=== PATIENT | male | born 1975 | race Caucasian/White ===

== ENCOUNTER 2016-11-27 02:50 | Emergency (ER) | payer OTHER ==
[~2016-11-27] VITALS: Ht 167.6 cm; Wt 70.8 kg
[~2016-11-27 02:50] MED LIST: <VITAMIN> A + D1 APP TOP; ALBUTEROL SULFAT3 M1 NEB; ARTIFICIAL TEAR1 OIN OPH; DESITIN MAXIMUM S40% TOP; FUROSEMIDE20 MG PEG; HEPARIN SC; JEVITY 1.2 CAL237 M1; JEVITY 1.2 CAL237 ML G TUBE; K-SOL20 MEQ/15 PEG; MEROPENEM1 G1 IV; MULTI-VIT WITH50 ML G TUBE; MULTI-VIT WITH50 ML PEG; OMEPRAZOLE D/R20 MG; OMEPRAZOLE40 M1; PAXIL10 M1 PEG; PERIDEX 0.12% OR1 ML PO; PHENOBARBI20 MG/5 M1 G TUBE; ROBINUL 1MG TABL1 MG PEG; TRANS SCOPE PAT1 PAT TOP; VANCOMYCIN1 GM/250 M IV; [UNRECOGNIZED DRUG - OTHER] NEB; [UNRECOGNIZED DRUG - OTHER] SC
--- NOTE | 2016-11-27 02:57 | ED GI/GU/ABDOMINAL COMPLAINT ---
See Addendum History of Present Illness General Chief Complaint: General Adult Stated Complaint: TUBE FEEDING REPLACEMENT Source: EMS, W10 Exam Limitations: clinical condition Vital Signs & Intake/Output Vital Signs & Intake/Output Vital Signs Date Time Temp Pulse Resp B/P Pulse O2 O2 Flow FiO2 Ox Delivery Rate 11/27 257 95 Trach Mask 6.0L 11/27 251 96.9 82 20 115/73 96 Trach Mask 6.0L Allergies Coded Allergies: NO KNOWN ALLERGIES (01/05/16) Reconcile Medications Acetylcysteine (Mucosol 20% 4ML) 4 ML ML 2 ML NEB BID WITH ALBUTEROL - RESPIRATORY (Reported) Albuterol Sulfate 3 ML NEB 3 ML NEB BID WITH ACETYLCYSTINE - RESP. 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 course Heparin 5,000 UNIT/ML BANDAR 5,000 UNIT SC Q8H BLOOD THINNER (Reported) Lactose-Reduced Food/Fiber (Jevity 1.2 Demetris Liquid) (Unknown Strength) LIQUID ( Unknown Dose) AD NUTRITIONAL SUPPLEMENT (Reported) Lanolin/Mineral Oil/Petrolat (Artificial Tears) 1 OIN OIN 1 KEISHA OPH 4 TIMES/ DAY BOTH EYES (Reported) Meropenem 1 GM VIAL 1 GM IV IQ8 aspiration pneumonia Omeprazole (Unknown Strength) CAPSULE.DR (Unknown Dose) AD GI (Reported) Paroxetine HCl (Paxil) 10 MG TABLET 1 TAB PEG DAILY MENTAL HEALTH (Reported) Phenobarbital 20 MG/5 ML ELIXIR 15 ML G TUBE BID SEIZURE PROPHYLAXIS ( Reported) Potassium Chloride (K-Beth) 20 MEQ/15 ML LIQUID 7.5 ML PEG DAILY SUPPLEMENT ( Reported) Scopolamine Hydrobromide (Transderm-Scop) 1 PAT PAT 1 PAT TOP Q3D secretions (Reported) apply to the hairless area behind 1 ear at least 4 hours before effect is required; reapply every 3 days as needed Vancomycin/0.9 % Sod Chloride (Vancomycin-0.9% NaCl 1 G/250) 1 GM/250 ML PLAST..BAG 1,000 MG IV Q12 aspiration pneumonia Triage Nurses Notes Reviewed? yes Onset: Abrupt Duration: hour(s): Timing: single episode today Quality/Severity: NO PAIN Location: epigastric Radiation: no radiation Activities at Onset: none Modifying Factors: Worsens With: other (ECF STAFF NOTED DISLODGED GTUB). Associated Symptoms: DISLODGED G-TUBE HPI: 41-year-old gentleman from a group home presents after the staff noted that his G-tube was dislodged. The medics were unclear what may have caused the G- tube to be dislodged. The w 10 noted that there was no trauma, bleeding, or other issues. He is otherwise well. Past History Travel History Traveled to [place] past 21 day No Medical History Any Pertinent Medical History? 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 No Review of Systems Review of Systems Constitutional: Reports: no symptoms. EENTM: Reports: no symptoms. Respiratory: Reports: no symptoms. Cardiovascular: Reports: no symptoms. GI: Reports: no symptoms. Genitourinary: Reports: no symptoms. Musculoskeletal: Reports: no symptoms. Skin: Reports: no symptoms. Neurological/Psychological: Reports: no symptoms. Hematologic/Endocrine: Reports: no symptoms. Immunologic/Allergic: Reports: no symptoms. All Other Systems: Reviewed and Negative Physical Exam Physical Exam General Appearance: well developed/nourished, no apparent distress, alert Head: atraumatic, normal appearance Eyes: Bilateral: normal appearance. Ears, Nose, Throat, Mouth: hearing grossly normal Neck: normal inspection, supple, full range of motion, normal alignment Respiratory: normal breath sounds, chest non-tender, no respiratory distress, quiet respiration, lungs clear Cardiovascular: regular rate/rhythm Gastrointestinal: normal bowel sounds, soft, non-tender Extremities: CONTRACTED Core Measures ACS in differential dx? No Severe Sepsis Present: No Septic Shock Present: No Progress Differential Diagnosis: g-TUBE DISLODGMENT Plan of Care: g tube placed without problem Diagnostic Imaging: Viewed by Me: Radiology Read. Discussed w/RAD: Radiology Read. Radiology Impression: abd xray... gtube in proper position Initial ED EKG: none Comments: PATIENT: LITZY CARVALHO PRESENT AGE: 41 PATIENT ACCOUNT NO: [id number] : 76 LOCATION: [facility] ORDERING PHYSICIAN: CARLOS ANDERS MD SERVICE DATE: 11/27/16 EXAM TYPE: RAD - [id number] VIEW Addendum: Following the original dictation, contrast was administered via the patient's G-tube. The G-tube is positioned within the stomach. Contrast opacifies the stomach which appears decompressed. Addendum Signed by: JOHNNY CARROLL MD 11/27/16546 EXAMINATION: XR ABDOMEN CLINICAL INDICATION: G-tube placement. COMPARISON: Abdominal CT 03/03/2016. FINDINGS: The reported gastrostomy tube is not visualized on this exam. IVC filter with its apex at the L3 level. Large volume stool within the rectum. There is contrast within distal bowel. No bowel obstruction. No acute osseous findings. IMPRESSION: The reported gastrostomy tube is not visualized on this exam. Gastrografin can be administered to confirm placement if indicated. DICTATED BY: JOHNNY CARROLL MD DATE/TIME DICTATED:11/27/16431 ROTARY RIG ENGINE OPERATOR:GEORGE DATE/TIME TRANSCRIBED:11/27/16431 CONFIDENTIAL, DO NOT COPY WITHOUT APPROPRIATE AUTHORIZATION. <Electronically signed in Other Vendor System> SIGNED BY: JOHNNY CARROLL MD 11/27/16440 Departure Departure Disposition: HOME OR SELF CARE Condition: Stable Clinical Impression Primary Impression: Dislodged gastrostomy tube Secondary Impressions: Attention to G-tube Referrals: SERENITY MORE MD (PCP/Family) Departure Forms: Customer Survey General Discharge Information Comments site confirmed via xray... pt safe for discharge.
--- NOTE | 2016-11-27 04:41 | RADIOLOGY REPORT ---
EXAMINATION: XR ABDOMEN CLINICAL INDICATION: G-tube placement. COMPARISON: Abdominal CT 03/03/2016. FINDINGS: The reported gastrostomy tube is not visualized on this exam. IVC filter with its apex at the L3 level. Large volume stool within the rectum. There is contrast within distal bowel. No bowel obstruction. No acute osseous findings. IMPRESSION: The reported gastrostomy tube is not visualized on this exam. Gastrografin can be administered to confirm placement if indicated.
[2016-11-27 07:25] VITALS: BP 122/68
== END 2016-11-27 08:42 ==
LOC: ERH 02:50
DX: K94.29 Other complications of gastrostomy (principal)
CPT/HCPCS: 74000

== ENCOUNTER 2017-05-25 23:29 | Emergency (ER) | payer OTHER ==
[~2017-05-25 23:29] MED LIST changes: +ACETYLCYST200 MG/1 M NEB; -ALBUTEROL SULFAT3 M1 NEB; +ALBUTEROL2.5 MG/3 M INH; -ARTIFICIAL TEAR1 OIN OPH; +ARTIFICIAL TEAR15 M8 OP; +FUROSEMIDE20 M1 PEG; +GABAPENTIN300 M2 PEG; +GLYCOPYRROLATE2 MG PEG; -HEPARIN SC; +HEPARIN SO5000 UNIT3 SC; -K-SOL20 MEQ/15 PEG; -OMEPRAZOLE40 M1; +Omeprazole PEG; +PERIDEX473 ML PO; -PHENOBARBI20 MG/5 M1 G TUBE; +PHENOBARBI20 MG/5 M2 PEG; +POTASSIUM20 MEQ/12 PEG; -[UNRECOGNIZED DRUG - OTHER] NEB; -[UNRECOGNIZED DRUG - OTHER] SC
--- NOTE | 2017-05-25 23:43 | ED GENERAL ADULT ---
History of Present Illness General Chief Complaint: Fever Stated Complaint: FEVER Source: EMS Exam Limitations: clinical condition Vital Signs & Intake/Output Vital Signs & Intake/Output Vital Signs Date Time Temp Pulse Resp B/P B/P Pulse O2 O2 Flow FiO2 Mean Ox Delivery Rate 05/26 0227 98.4 106 20 108/74 94 Trach Mask 6.0L 05/25 2331 98.5 103 24 109/78 94 Trach Mask ED Intake and Output 05/26 0000 05/25 1200 Intake Total Output Total Balance Patient 125 lb Weight Weight Estimated Measurement Method Allergies Coded Allergies: NO KNOWN ALLERGIES (01/05/16) Reconcile Medications Acetylcysteine (Acetylcysteine) 200 MG/ML (20 %) VIAL 2 ML NEB BID SHORTNESS OF BREATH (Reported) Albuterol Sulfate 2.5 MG/3 ML (0.083 %) VIAL.NEB 1 VIAL INH BID BREATHING PROBLEMS (Reported) Chlorhexidine Gluconate (Peridex) 0.12 % MOUTHWASH 5 ML PO TID ORAL HYGINE ( Reported) Furosemide 20 MG TABLET 1 TAB PEG Tuesday WATER RETENTION (Reported ) Gabapentin 300 MG CAPSULE 1 CAP PEG TID UNKNOWN (Reported) Glycopyrrolate 2 MG TABLET 1 TAB PEG TID UNKNOWN (Reported) Heparin Sodium,Porcine (Heparin Sodium) 5,000 UNIT/ML VIAL 1 ML SC Q8 BLOOD THINNER (Reported) Lactose-Reduced Food/Fiber (Jevity 1.2 Demetris Liquid) (Unknown Strength) LIQUID ( Unknown Dose) AD NUTRITIONAL SUPPLEMENT (Reported) [Omeprazole] LIQ 20 ML PEG DAILY GI (Reported) Paroxetine HCl (Paxil) 10 MG TABLET 1 TAB PEG DAILY MENTAL HEALTH (Reported) Phenobarbital 20 MG/5 ML (5 ML) ELIXIR 15 ML PEG BID SEIZURES (Reported) Polyvinyl Alcohol (Artificial Tears) 1.4 % DROPS 1 DROP OP 4 TIMES/DAY DRY EYE (Reported) Potassium Chloride 20 MEQ/15 ML LIQUID 7.5 ML PEG DAILY SUPPLEMENT (Reported) Triage Nurses Notes Reviewed? yes Onset: Gradual Duration: hour(s): Timing: single episode today Injury Environment: home Severity: moderate HPI: 42 yo gentleman w/ anoxic brain injury presents after a fever this pm >102. Labs done earlier today were benign. He is non verbal, does not appear to be uncomfortable, and is otherwise well. Past History Travel History Traveled to [place] past 21 day No Medical History Any Pertinent Medical History? 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 No Review of Systems Review of Systems Constitutional: Reports: no symptoms. EENTM: Reports: no symptoms. Respiratory: Reports: no symptoms. Cardiovascular: Reports: no symptoms. GI: Reports: no symptoms. Genitourinary: Reports: no symptoms. Musculoskeletal: Reports: no symptoms. Skin: Reports: no symptoms. Neurological/Psychological: Reports: no symptoms. Hematologic/Endocrine: Reports: no symptoms. Immunologic/Allergic: Reports: no symptoms. All Other Systems: Reviewed and Negative Comments limited ROS based on w10 Physical Exam Physical Exam General Appearance: well developed/nourished, no apparent distress Head: atraumatic, normal appearance Eyes: Bilateral: normal appearance, PERRL, EOMI. Ears, Nose, Throat: normal pharynx, normal ENT inspection, tracheostomy in place , no significant discharge. Neck: normal inspection, supple, full range of motion Respiratory: normal breath sounds, chest non-tender, no respiratory distress, quiet respiration Cardiovascular: regular rate/rhythm Gastrointestinal: normal bowel sounds, soft, non-tender, no organomegaly Back: normal inspection, normal range of motion Extremities: normal capillary refill, no edema, upper and lower extremity contractures. Neurologic/Psych: no motor/sensory deficits, nonverbal, but appears comfortable. Core Measures ACS in differential dx? No CVA/TIA Diagnosis: No Severe Sepsis Present: No Septic Shock Present: No Progress Differential Diagnoses I considered the following diagnoses in my evaluation of the patient: uti vs pna vs other. Plan of Care: Orders Procedure Date/time Status Straight Cath 05/26 0056 Active URINALYSIS 05/25 2351 Complete COMPREHENSIVE METABOLIC PANEL 05/25 2351 Complete CBC WITHOUT DIFFERENTIAL 05/25 2351 Complete Laboratory Tests 05/26/17 0035: Urinalysis MOD H, Urine Color YEL, Urine Clarity HAZY H, Urine pH 6.0, Ur Specific Hume 1.025, Urine Protein 100 H, Urine Ketones NEG, Urine Nitrite NEG, Urine Bilirubin NEG, Urine Urobilinogen 1.0, Ur Leukocyte Esterase NEG, Ur Microscopic SEDIMENT EXAMINED, Urine RBC 50-75 H, Urine WBC 5-10 H, Ur Epithelial Cells FEW, Urine Bacteria FEW H, Hyaline Casts RARE H, Urine Mucus RARE, Urine Hemoglobin LARGE H, Urine Glucose NEG 05/26/17 0004: Anion Gap 14, Estimated GFR > 60, BUN/Creatinine Ratio 50.0 H, Glucose 98, Calcium 9.1, Total Bilirubin 0.9, AST 30, ALT 61, Alkaline Phosphatase 66, Total Protein 7.2, Albumin 4.3, Globulin 2.9, Albumin/Globulin Ratio 1.5, CBC w Diff NO MAN DIFF REQ, RBC 5.58, MCV 95.8 H, MCH 32.1 H, RDW 11.5, MPV 9.4, Gran % 71.3, Lymphocytes % 19.9 L, Monocytes % 8.3, Eosinophils % 0.1, Basophils % 0.4 , Absolute Granulocytes 8.5 H, Absolute Lymphocytes 2.4, Absolute Monocytes 1.0 H, Absolute Eosinophils 0, Absolute Basophils 0, PUBS MCHC 33.5 Initial ED EKG: none Departure Departure Disposition: HOME OR SELF CARE Condition: Stable Clinical Impression Primary Impression: Fever Referrals: TING RICHEY MD (PCP/Family) Departure Forms: Customer Survey General Discharge Information Comments his workup appears stable, without signs of acute infection... afebrile in the ED... pt stable for discharge. Critical Care Note Critical Care Note Critical Care Time: non-applicable
[2017-05-26 00:27] LABS: ABSOLUTE BASOPHIL COUNT 0 /CUMM (0.0-0.2); ABSOLUTE EOSINOPHIL COUNT 0 /CUMM (0.0-0.7); ABSOLUTE GRANULOCYTE CT 8.5 /CUMM (1.4-6.5); ABSOLUTE LYMPH COUNT 2.4 /CUMM (1.2-3.4); BASOPHIL % 0.4 % (0.0-2.0); EOSINOPHIL % 0.1 % (0-5); GRANULOCYTE % 71.3 % (42.2-75.2); HEMATOCRIT 53.5 % (42-52); MEAN CORPUSCULAR HGB 32.1 PG (27.0-31.0); MEAN CORPUSCULAR HGB CONC 33.5 G/DL (33.0-37.0); MEAN CORPUSCULAR VOLUME 95.8 FL (80.0-94.0); MEAN PLATELET VOLUME 9.4 FL (7.4-10.4); PLATELET COUNT 153 /CUMM (130-400); RBC DISTRIBUTION WIDTH 11.5 % (11.5-14.5); RED BLOOD CELL CT 5.58 /CUMM (4.70-6.10); WHITE BLOOD CELL COUNT 11.9 /CUMM (4.8-10.8)
--- NOTE | 2017-05-26 01:42 | RADIOLOGY REPORT ---
EXAMINATION: XR PORTABLE CHEST CLINICAL INFORMATION: Fever COMPARISON: None TECHNIQUE: Portable frontal view of the chest was obtained. FINDINGS: Tracheostomy tube tip lies approximately 4.7 cm above the ivelisse. There is mild ill-defined opacity at the right lung base which may reflect atelectasis/bronchovascular crowding, or potentially developing consolidation. No additional consolidation is seen bilaterally. No evidence of pneumothorax, significant pleural effusion, or overt pulmonary edema. Cardiac size appears within normal limits accounting for rightward patient rotation. There is a healed fracture of the mid left clavicle. Healed fractures of the left second and fifth ribs are also suspected. IMPRESSION: Mild ill-defined right basilar opacity which may reflect atelectasis/bronchovascular crowding, though developing consolidation cannot be excluded. Short-term radiographic follow-up may be helpful.
[2017-05-26 02:27] VITALS: BP 108/74
== END 2017-05-26 02:45 ==
LOC: ERH 23:29
PROVIDERS: Pediatrics
DX: R50.9 Fever, unspecified (principal)
CPT/HCPCS: 81001